=== PATIENT | female | born 1960 | race Caucasian/White ===

== ENCOUNTER 2016-08-05 10:01 | Emergency (ER) | payer BC ==
[~2016-08-05] VITALS: Ht 154.9 cm; Wt 75.2 kg
[~2016-08-05 10:01] MED LIST: ADVAIR HFA120 INHALA IH; ATIVAN0.5 MG PO; AZITHROMYCIN250 MG1 PO; BIAXIN500 MG PO; CLEOCIN300 MG PO; CLONAZEPAM0.5 MG PO; COMBIVENT RESPIM4 GM IH; CYMBALTA20 MG PO; DOXYCYCLINE HY100 M3 PO; DUONEB 2.5-0.5 M3 ML AEROSOL; ESCITALOPRAM OX10 MG PO; FLONASE16 G1 BOTH NARES; LEXAPRO10 MG PO; LORAZEPAM0.5 MG PO; MEDROL DOSEPAK4 MG PO; MIRTAZAPINE7.5 MG PO; NICOTINE PATCH1 EAC2 TD; PREDNISONE10 MG PO; PREDNISONE20 MG PO; SKELAXIN800 MG PO; SPIRIVA RESPIMAT4 GM IH; TESSALON PERLE100 MG PO; VENTOLIN HFA18 GM IH; ZITHROMAX Z-PA250 MG PO; ZITHROMAX250 MG PO; ZOFRAN ODT4 MG PO; ZYRTEC10 M3 PO
[2016-08-05 10:54] LABS: HEMATOCRIT 44.8 % (36.0-46.0); MCH 28.6 PG (29.0-34.0); MCHC 33.3 G/DL (30.0-36.0); MEAN PLAT.VOLUME 11.1 uM^3 (9.5-12.4); PLATELET COUNT 264 K/uL (156-360); RBC DIS.WIDTH-CV 14.1 % (11.8-14.6); RBC DIS.WIDTH-SD 44.2 % (39-53); RED BLOOD COUNT 5.21 M/uL (3.80-5.20); WHITE BLOOD COUNT 8.5 K/uL (4.1-10.2)
[2016-08-05 11:05] LABS: CHLORIDE 110 mEq/L (99-109); POTASSIUM 4.2 mEq/L (3.7-5.4); SODIUM 140 mEq/L (136-147)
[2016-08-05 11:07] LABS: GLUCOSE 98 mg/dL (70-99)
[2016-08-05 11:08] LABS: ANION GAP 11 MEQ/L (2-14)
[2016-08-05 11:11] LABS: GFR ESTIMATE (CALCULATED) > 59 mL/min/; UREA NITROGEN (BUN) 19 mg/dL (9-23)
[2016-08-05] MEDS ORDERED: METFORMIN HCL500 MG PO (11:49)
[2016-08-05] MEDS ORDERED: FENOFIBRATE160 M1 PO (11:50)
[2016-08-05] MEDS ORDERED: ATORVASTATIN CA20 MG PO (11:50)
[2016-08-05 12:42] LABS: TROP-I INTERPRETATION NEGATIVE; TROPONIN-I < 0.01 ng/mL (0.0-0.30)
[2016-08-05] MEDS ORDERED: ATARAX,VISTARIL25 MG PO (12:49)
[2016-08-05 13:11] VITALS: BP 105/77
== END 2016-08-05 13:12 | disposition home or self-care (01) ==
LOC: EME 10:01
DX: F41.9 Anxiety disorder, unspecified (principal); R07.9 Chest pain, unspecified; R06.02 Shortness of breath; Z87.442 Personal history of urinary calculi; F17.200 Nicotine dependence, unspecified, uncomplicated
CPT/HCPCS: 71020; 80048; 84484; 85027; 93005; 99281; 99284

== ENCOUNTER → 2018-03-09 | Outpatient (CLI) | payer MEDICARE ==
[~2018-03-09] MED LIST changes: +ATARAX,VISTARIL25 MG PO; +ATORVASTATIN CA20 MG PO; +FENOFIBRATE160 M1 PO; +METFORMIN HCL500 MG PO
== END | disposition home or self-care (01) ==
LOC: CDC 08:26
DX: Z01.810 Encounter for preprocedural cardiovascular examination (principal); M75.122 Complete rotator cuff tear or rupture of left shoulder, not specified as traumatic; M54.12 Radiculopathy, cervical region; M43.6 Torticollis; M25.512 Pain in left shoulder; E11.9 Type 2 diabetes mellitus without complications
CPT/HCPCS: 93000